=== PATIENT | female | born 1965 | race Caucasian/White ===

== ENCOUNTER → 2019-03-17 | Outpatient (CLI) | payer OTHER | END | disposition home or self-care (01) | LOC: LABWHC1 14:15 | PROVIDERS: ATTEND Nurse Practitioner Acute Care | DX: H02.409 Unspecified ptosis of unspecified eyelid (principal) | CPT/HCPCS: 36415 ==

== ENCOUNTER → 2019-04-14 | Outpatient (CLI) | payer OTHER ==
[2019-04-14 11:05] LABS: Basophils # (A) 0.1 k/uL (0-0.2); Basophils % (A) 1 %; Eosinophils # (A) 0.3 k/uL (0-0.7); Eosinophils % (A) 4 %; HCT 44.4 % (34.0-46.0); Lymphocytes % (A) 41 %; MCH 31.3 pg (25.0-35.0); MCHC 31.6 g/dL (31.0-37.0); MCV 98.9 fL (80.0-100.0); Mean Platelet Volume 7.4; Monocytes # (A) 0.7 k/uL (0-1.0); Monocytes % (A) 9 %; Neutrophils % (A) 41 %; Platelet Count 349 k/uL (150-450); RBC 4.49 m/uL (3.80-5.40); RDW 14.7 % (11.5-15.5); WBC 7.2 k/uL (3.8-10.6)
[2019-04-14 16:22] LABS: African American GFR (CKD) 96.9 (60.0-200.0); Albumin 4.3 g/dL (3.80-4.90); Albumin/Globulin Ratio 1.54 (1.60-3.17); Anion Gap 8.5 mmol/L (4.00-12.00); BUN/Creat Ratio 12.5 Ratio (12.00-20.00); Calcium 9.5 mg/dL (8.7-10.3); Carbon Dioxide 26.5 mmol/L (21.6-31.8); Globulin 2.8 g/dL (1.6-3.3); Potassium 3.9 mmol/L (3.5-5.5); Total Bilirubin 0.9 mg/dL (0.3-1.2); Total Protein 7.1 g/dL (6.2-8.2)
[2019-04-14 16:30] LABS: T4, Free (Free Thyroxine) 1.7 ng/dL (0.80-1.80)
[2019-04-14 17:01] LABS: Vitamin D 25 Hydroxy 24.1 ng/mL (30.0-100.0)
== END | disposition home or self-care (01) ==
LOC: LABWHC1 10:14
PROVIDERS: ATTEND Nurse Practitioner Acute Care
DX: E03.9 Hypothyroidism, unspecified (principal); E55.9 Vitamin D deficiency, unspecified; R53.82 Chronic fatigue, unspecified
CPT/HCPCS: 36415; 80053; 82306; 82607; 84207; 84439; 84443; 84481; 85025

== ENCOUNTER → 2024-10-17 | Outpatient (CLI) | payer OTHER ==
--- NOTE | 2024-10-17 11:57 | XR ---
EXAMINATION TYPE: XR lumbar spine 2 or 3V DATE OF EXAM: 10/17/2024 11:33 AM COMPARISON: None CLINICAL INDICATION: Female, 59 years old with history of M51.360 DDD M41.9 Scoliosis; [facility] TECHNIQUE: XR lumbar spine 2 or 3V - Frontal, lateral and coned in L5-S1 lateral views of the spine. FINDINGS: No evidence of any acute osseous pathology. No evidence of loss of vertebral body height i s seen. There is scoliotic alignment of the lumbar vertebral bodies. Scattered disc space narrowing. Multilevel marginal osteophyte formation throughout the visualized spine. There is facet joint arthro ching throughout the spine. Scattered at least mild neural foraminal stenosis. Pseudoarthrosis of the spinous processes. IMPRESSION: 1. No acute fracture. 2. Moderate to severe multilevel disc degeneration with scoliosis. [facility], , 10/17/2024 11:55 AM
== END | disposition home or self-care (01) ==
LOC: RADXRMAIN 11:14
PROVIDERS: ATTEND Family Medicine
DX: M51.360 Other intervertebral disc degeneration, lumbar region with discogenic back pain only (principal); M41.9 Scoliosis, unspecified; M47.896 Other spondylosis, lumbar region
CPT/HCPCS: 72100